=== PATIENT | female | born 1955 | race Caucasian/White ===

== ENCOUNTER → 2017-04-01 | Outpatient (CLI) | payer OTHER ==
[~2017-04-01] MED LIST: ARTIFICIAL TEA1 EACH OPHTH; COLACE100 MG PO; DILAUDID 2MG(HYD2 MG PO; ESKALITH CR450 MG PO; KLONOPIN2 MG PO; LEVOTHROID(SYN75 MCG PO; LITHIUM CARBON450 MG PO; NAPROSYN500 MG PO; THERA-VITE W/ B1 TAB PO; TYLENOL EXTRA500 MG PO; VALIUM5 MG PO; VITAMIN D1000 UNIT PO; VITAMIN E400 UNI2 PO; XARELTO10 MG PO
== END | disposition disaster alternative care site (69) ==
LOC: GBCOE 12:27
DX: Z13.820 Encounter for screening for osteoporosis (principal); Z78.0 Asymptomatic menopausal state; M85.89 Other specified disorders of bone density and structure, multiple sites